=== PATIENT | female | born 1990 | race Caucasian/White ===

== ENCOUNTER 2020-09-26 12:05 | Emergency (ER) | payer OTHER, SELFPAY ==
--- NOTE | ~2020-09-26 | XR_ITS ---
XR hand RT min 3V 09/26/2020 12:55 INDICATION: Right hand pain. History of rheumatoid arthritis. Lump overlying the proximal third metac arpal. PROCEDURE: 3 views right hand COMPARISON: No prior studies for comparison. FINDINGS: Fracture, dislocation or subluxation is not identified. No erosive changes. No significant degenerative changes. The soft tissues appear within normal limits. No foreign bodies are identified . IMPRESSION: 1: NO ACUTE BONE OR JOINT ABNORMALITY IDENTIFIED. Reviewed, dictated and finalized at location A.
[2020-09-26 12:31] VITALS: BP 106/76; PULSE 84; RESP 16; TEMP 37.4; O2SAT 100
--- NOTE | 2020-09-26 12:46 | ED.EXTPRO ---
HPI - Extremity Problem General Chief complaint: Extremity Problem,Nontraumatic Stated complaint: R HAND SWELLING Source: patient Mode of arrival: ambulatory Limitations: no limitations History of Present Illness HPI Narrative: 30-year-old female presents to urgent care with complaints of pain and swelling to the dorsal aspect of her right hand for the past 5 days. Patient denies injury to her hand. Patient does report history of rheumatoid arthritis and is currently not taking medications due to insurance issue. 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 Patient denies numbness, tingling, bruising or erythema. MD Complaint: extremity pain and joint swelling Onset (ago): day(s) (5) Pain Consistency: constant Exacerbating factors: range of motion Associated symptoms: denies other symptoms Related Data Home Medications Medication Instructions Recorded Confirmed aripiprazole mg 09/26/20 buspirone mg 09/26/20 divalproex PO 09/26/20 levothyroxine 09/26/20 prednisone 09/26/20 sertraline mg 09/26/20 Allergies Allergy/AdvReac Type Severity Reaction Status Date / Time Cephalosporins Allergy Mild Rash Unverified 09/26/20 12:28 loracarbef Allergy Mild Rash Verified 09/26/20 12:28 Penicillins Allergy Mild Rash Verified 09/26/20 12:28 Sulfa (Sulfonamide Allergy Mild Rash Verified 09/26/20 12:28 Antibiotics) Review of Systems Constitutional: Constitutional: Denies chills, Denies fatigue, Denies fever(s) and Denies weakness Cardiovascular: Cardiovascular: Denies chest pain, Denies rapid heart rate and Denies radiating jaw, neck or arm pain Respiratory: Respiratory: Denies chest congestion, Denies cough, Denies dyspnea and Denies wheezing Gastrointestinal: Gastrointestinal: Denies abdominal pain, Denies diarrhea, Denies nausea and Denies vomiting Musculoskeletal: Musculoskeletal: Reports arthralgias and Reports joint swelling Comments: Pain and swelling to dorsal aspect of right hand Neurologic: Denies vertigo, Denies dizziness and Denies syncope [facility] Social History Social History (Updated 09/26/20 @ 12:49 by Yoselin Mace APRN) Smoking status: Never smoker Comments At time of signature, I agree with nursing past medical, surgical, social and family history. There is no relevant family history pertinent to the presenting complaint. Exam Const: General: no acute distress and alert Nutritional Appearance: well nourished Orientation/consciousness: patient oriented x3 Neck: Neck: normal visual inspection Resp: Effort & Inspection: normal respiratory effort and not tachypneic Auscultation: clear to auscultation bilaterally, no rales, no rhonchi and no wheezes Cardio: Rate: regular rate, not bradycardic and not tachycardic Rhythm: regular rhythm Heart sounds: no murmurs Skin: General skin exam: normal color Rashes: no rashes Wounds: no wounds Neuro: General: patient oriented x3, moves all extremities and no meningeal signs Speech: normal speech Extrem: General: no pedal edema Other: Mild swelling noted to dorsal aspect of right hand. There is mild amount of pain noted to dorsal aspect of right hand upon palpation and range of motion of right hand. There is no bruising, erythema or open wound noted. Psych: Appearance: grossly normal Mental Status: mental status grossly normal Affect: normal affect Attitude: cooperative Thought content: Yes Normal thought content present Course Vital Signs Vital signs: Vital Signs Temperature 37.4 C 09/26/20 12:31 Pulse Rate 84 09/26/20 12:31 Respiratory Rate 16 09/26/20 12:31 Blood Pressure 106/76 09/26/20 12:31 Pulse Oximetry 100 09/26/20 12:31 Temperature 37.4 C 09/26/20 12:31 Pulse Rate 84 09/26/20 12:31 Respiratory Rate 16 09/26/20 12:31 Blood Pressure 106/76 09/26/20 12:31 Pulse Oximetry 100 09/26/20 12:31 MDM - Extremity (Nontraumatic) MDM Narrative Medical d
== END 2020-09-26 13:20 | disposition home or self-care (01) ==
PROVIDERS: Emergency Provider Nurse Practitioner Family; PCP Physician Assistant
DX: M79.641 Pain in right hand (principal); M06.9 Rheumatoid arthritis, unspecified; E05.00 Thyrotoxicosis with diffuse goiter without thyrotoxic crisis or storm
CPT/HCPCS: 73130; 99213; G0463